=== PATIENT | female | born 1980 | race African-American/Black ===

== ENCOUNTER 2019-08-12 11:41 | Emergency (ER) | payer MEDICAID ==
[~2019-08-12] VITALS: Ht 167.6 cm; Wt 94.8 kg
--- NOTE | 2019-08-12 11:52 | NUR ---
ED Nurse Note: PT WALKED IN TO ED FOR C/O PRODUCTIVE COUGH WITH YELLOWISH SPUTUM, DIZZINESS, CHILLS, NASAL CONGESTION SINCE 08/05/19. PT ALSO REPORTS CHEST PAIN FROM COUGHING TOO MUCH
--- NOTE | 2019-08-12 11:52 | NUR ---
Note zoya in EDM - 08/12/19 at 1154 by JASMEET ED Nurse Note: PT WALKED IN TO ED F PT AMBULATED TO ED C/O CHEST PAIN DUE TO HARD COUGH WITH YELLOW PHLEGM, CHILLS, DIZZINESS, NASAL CONGESTION 07/25/2019.
[2019-08-12 11:54] VITALS: BP 132/92
--- NOTE | 2019-08-12 12:14 | Emergency Room Report ---
History of Present Illness General Chief Complaint: Upper Respiratory Illness Source: Patient Present Illness HPI Disclaimer: Please note that this report is being documented using [employer] technology. This can lead to erroneous entry secondary to incorrect interpretation by the dictating instrument. HPI: 39-year-old female presents for evaluation of persistent cough. The patient states she had a flulike illness approximately 2 weeks ago complaining of fevers, chills, sweats, cough, sore throat, muscle aches. Most of the symptoms have resolved though she has a lingering cough that is worse throughout the day and at night making it difficult to sleep. Denies any history of asthma, COPD and is a non-smoker. Does not use any albuterol inhalers or other pulmonary medications. Denies any current fever, chills, muscle aches, sore throat, vomiting, diarrhea or other symptoms at this time. Denies chest pain, palpitations shortness of breath. PMH: Endometriosis PSH: Laparoscopic surgery for endometriosis Allergies: Denies Social Hx: Denies drug, alcohol or tobacco use Allergies: Coded Allergies: No Known Allergies (Unverified , 08/12/19) Patient History Last Menstrual Period: 08/06/19 Nursing Documentation-PMH Past Medical History: No Stated History Review of Systems All Other Systems: negative except mentioned in HPI Physical Exam Vital Signs Date Time Temp Pulse Resp B/P (MAP) Pulse Ox O2 Delivery O2 Flow Rate FiO2 08/12/19 11:44 98.2 86 16 137/98 (111) 96 Room Air General: Awake and alert, no acute distress HEENT: NC/AT. EOMI. uvula midline. Tonsils are 2+, nonerythematous, nonedematous, no exudate. Neck: Supple, trachea midline, no lymphadenopathy Chest Wall: No tenderness, no deformity Cardiovascular: RRR. S1 and S2 normal. No murmur appreciated Resp: Normal work of breathing. No cough, wheezing or crackles appreciated Skin: Intact. No abrasions, laceration or rash over the exposed skin MSK: Normal tone and bulk. Moving all extremities. No obvious deformity. Neuro: Awake and alert. Mentating appropriately. Medical Decision Making Diagnostic Impression: Primary Impression: Cough ER Course There [id number] female presents for evaluation of persistent cough after a flulike illness 2 weeks ago. All her other symptoms have resolved though she complains of a persistent cough that is worse at night keeping her for sleep. Differential includes was not limited to bronchitis, pleurisy, secondary pneumonia or reactive airway disease to name a few. She is well-appearing with normal vital signs in no acute distress. Lungs are clear though will obtain an x-ray to rule out secondary pneumonia. Do not believe she requires emergent labs at this time. Chest X-Ray Diagnostic Results Chest X-Ray Diagnostic Results : Chest X-Ray Ordered: Yes # of Views/Limited/Complete: 2 View Indication: Shortness of Breath EP Interpretation: Yes Interpretation: no consolidation, no effusion, no pneumothorax, no acute cardiopulmonary disease Impression: No acute disease Electronically Signed by: Electronically signed by Dr. Barry Bess Reevaluation Time: 13:06 Last Vital Signs Date Time Temp Pulse Resp B/P (MAP) Pulse Ox O2 Delivery O2 Flow Rate FiO2 08/12/19 11:54 98.2 81 16 132/92 96 Room Air Reevaluation Impression No evidence of infiltrate on chest x-ray. Patient is well-appearing stable vital signs. She will be discharged with an albuterol inhaler and started on prednisone for persistent cough after an upper respiratory infection. We will follow-up with her PMD to discuss her symptoms. Discussed reasons to return to the emergency department. She understands and agrees with this treatment plan. Disposition: HOME, SELF-CARE Condition: Stable Scripts Prednisone* (PREDNISONE*) 20 Mg Tablet 40 MG ORAL DAILY for 5 Days, #10 TAB Prov: Barry Bess MD 08/12/19 Albuterol Sulfate* (ALBUTEROL SULFATE MDI*) 8.5 Gm Hfa.aer.ad 2 PUFF INH Q4H PRN for cough/wheezing, #1 EA 0 Refills Prov: Barry Bess MD 08/12/19 Barry Bess MD Aug 12, 2019 12:14
[2019-08-12] MEDS ORDERED: PREDNISONE20 MG ORAL (13:04)
[2019-08-12] MEDS ORDERED: ALBUTEROL SULF8.5 GM INH (13:04)
[2019-08-12 13:10] VITALS: BP 132/92
--- NOTE | 2019-08-12 13:10 | NUR ---
ER DISCHARGE NOTE: Patient is cleared to be discharged per ERMD DR MALHOTRA, pt is aox4, on room air, with stable vital signs. pt was given dc and prescription instructions, pt was able to verbalize understanding, pt id band removed without complications. pt is able to ambulate with steady gait. pt took all belongings.
--- NOTE | 2019-08-12 15:23 | Diagnostic Imaging Report ---
Indication: Cough Technique: 2 views of the chest Comparison: None Findings: The right hemidiaphragm is elevated. The lungs and pleural spaces are clear. The heart size is normal Impression: Negative
== END 2019-08-12 13:10 | disposition home or self-care (01) ==
LOC: EMR 13:06
DX: R05 Cough (principal)
CPT/HCPCS: 71046; Z7502; 99283